=== PATIENT | female | born 1940 | race African-American/Black ===

== ENCOUNTER 2022-02-09 22:20 | Emergency (ER) | payer MEDICARE ==
[~2022-02-09] VITALS: Ht 167.6 cm; Wt 64.0 kg
[2022-02-09] MEDS ORDERED: ASPIRIN 81MG TABLET PO ONE (22:45)
[2022-02-09] MEDS ORDERED: NITROGLYCERIN 0.4MG TABLET SL SL PRN (22:45)
[2022-02-09 23:04] LABS: BASOPHILS % 0.5 % (0.0-2.0); EOSINOPHILS % 4.7 % (0.0-5.0); HEMOGLOBIN. 13.8 g/dL (12.0-16.0); LYMPHOCYTES % 43.2 % (20.0-50.0); MEAN CORPUSCULAR HEMOGLOBIN 28.1 pg (28.0-32.0); MEAN CORPUSCULAR VOLUME 85.7 fL (81.0-99.0); MEAN PLATELET VOLUME 9.9 fl (7.4-10.4); MONOCYTES % 10.3 % (2.0-8.0); NEUTROPHILS % 41.3 % (40.0-76.0); PLATELET 237 x1000/uL (130-400); RED CELL DISTRIBUTION WIDTH 14.3 % (11.6-14.6)
[2022-02-09 23:05] LABS: CHLORIDE 98 mEq/L (98-107)
[2022-02-10 04:01] VITALS: BP 163/82
== END 2022-02-10 04:02 | disposition home or self-care (01) ==
LOC: ER 22:20
DX: I16.0 Hypertensive urgency (principal); M25.512 Pain in left shoulder; I11.0 Hypertensive heart disease with heart failure; I50.9 Heart failure, unspecified; I44.4 Left anterior fascicular block
CPT/HCPCS: 36415; 71045; 80053; 83880; 84484; 85025; 93005; 99285